=== PATIENT | female | born 1985 | race Caucasian/White ===

== ENCOUNTER 2016-07-14 05:50 | Day surgery (SDC) | payer BC ==
[~2016-07-14] VITALS: Ht 152.4 cm; Wt 42.6 kg
[~2016-07-14 05:50] MED LIST: ENDOCET 5-3251 EACH PO; FERROUS SULFAT325 MG PO; MOTRIN800 MG PO
[2016-07-14 06:06] VITALS: BP 92/55
[2016-07-14 09:27] VITALS: BP 95/59
[2016-07-14 10:05] VITALS: BP 89/62
[2016-07-14 10:30] VITALS: BP 92/55
[2016-07-14 11:18] LABS: INTERNAL CONTROL VALID? YES
== END 2016-07-14 10:38 | disposition home or self-care (01) ==
LOC: SDC 05:50
PROVIDERS: Obstetrics & Gynecology Gynecology
PROC: 0UDB8ZX Extraction of Endometrium, Via Natural or Artificial Opening Endoscopic, Diagnostic (ICD-10-PCS; principal; 2016-07-14)
DX: N92.1 Excessive and frequent menstruation with irregular cycle (principal); N85.4 Malposition of uterus; N94.6 Dysmenorrhea, unspecified; F17.200 Nicotine dependence, unspecified, uncomplicated; D50.9 Iron deficiency anemia, unspecified; Z83.3 Family history of diabetes mellitus; Z83.49 Family history of other endocrine, nutritional and metabolic diseases; Z80.42 Family history of malignant neoplasm of prostate; Z81.8 Family history of other mental and behavioral disorders
CPT/HCPCS: 84703; 88305; J1100; J1885; J2250; J2405; J2710; J3010